=== PATIENT | female | born 1955 | race Caucasian/White ===

== ENCOUNTER 2018-07-30 09:33 | Emergency (ER) | payer BC ==
[~2018-07-30] VITALS: Ht 162.6 cm; Wt 77.1 kg
[2018-07-30 10:50] VITALS: BP 155/100
== END 2018-07-30 11:53 | disposition home or self-care (01) ==
LOC: ER 09:33
DX: J11.1 Influenza due to unidentified influenza virus with other respiratory manifestations (principal); J32.9 Chronic sinusitis, unspecified
CPT/HCPCS: 71046

== ENCOUNTER 2022-03-19 10:59 | Emergency (ER) | payer BC ==
[~2022-03-19] VITALS: Ht 162.6 cm; Wt 68.1 kg
[2022-03-19 11:22] VITALS: BP 163/117
== END 2022-03-19 14:38 | disposition home or self-care (01) ==
LOC: ER 10:59
DX: S00.03XA Contusion of scalp, initial encounter (principal); S60.031A Contusion of right middle finger without damage to nail, initial encounter; S60.041A Contusion of right ring finger without damage to nail, initial encounter; W01.0XXA Fall on same level from slipping, tripping and stumbling without subsequent striking against object, initial encounter; Y93.89 Activity, other specified; Y92.89 Other specified places as the place of occurrence of the external cause; Y99.8 Other external cause status
CPT/HCPCS: 29130; 70450; 73130

== ENCOUNTER 2023-07-30 16:36 | Emergency (ER) | payer BC ==
[~2023-07-30] VITALS: Ht 162.6 cm; Wt 77.7 kg
[2023-07-30] MEDS ORDERED: methylPREDNISolone SOD SUCC 125 MG/2 ML VL IM ONE (19:45)
[2023-07-30] MEDS ORDERED: KETOROLAC TROMETH 30 MG/ML 1ML VIAL IM ONE (19:45)
[2023-07-30 20:11] VITALS: PULSE 96; RESP 16; O2SAT 99
[2023-07-30] MEDS ORDERED: VALA1TAB PO (20:30)
[2023-07-30 20:45] VITALS: BP 181/123; PULSE 89; RESP 16; TEMP 98; O2SAT 98
== END 2023-07-30 20:58 | disposition home or self-care (01) ==
LOC: ER 16:36
DX: B02.9 Zoster without complications (principal); R07.89 Other chest pain
CPT/HCPCS: 71046; 93005; 96372; 99284; J1885; J2930